=== PATIENT | male | born 1970 | race African-American/Black ===

== ENCOUNTER 2019-12-02 20:20 | Inpatient (IN) ==
[2019-12-02] MEDS ORDERED: MAGNESIUM HYDROXIDE SUSP 30 ML UDC PO PRN (23:41)
[2019-12-02] MEDS ORDERED: ACETAMINOPHEN 325 MG TAB PO PRN (23:41)
[2019-12-02] MEDS ORDERED: ALUMINUM/MAGNESIUM SUSP 30 ML UDC PO PRN (23:41)
[2019-12-02] MEDS ORDERED: POLYETHYLENE (MIRALAX) 17 GM PACK PO PRN (23:41)
[2019-12-02] MEDS ORDERED: ONDANSETRON INJ 2 MG/ML 2 ML VIAL IV PRN (23:41)
[2019-12-02] MEDS ORDERED: VANCOMYCIN CONSULT ACTIVE PRN ×2 (23:52)
[2019-12-03] MEDS ORDERED: SODIUM CHLORIDE 0.9% 1000ML 500 ML IV ONE
[2019-12-03 00:12] LABS: Basophils # (auto) 0.02 K/uL (0-0.2); Basophils % (auto) 0.1 %; Eosinophils # (auto) 0.33 K/uL (0-0.5); Eosinophils % (auto) 1.7 %; Hematocrit (blood only) 34.7 % (42-52); Hemoglobin 11.4 g/dL (14.0-18.0); Immature Granulocytes # (auto) 0.08 K/uL (0.00-0.02); Immature Granulocytes % (auto) 0.4 %; Lymphocytes # (auto) 1.98 K/uL (1.2-3.4); Lymphocytes % (auto) 10.2 %; Mean Corpuscular Hemoglobin 23.5 pg (25-34); Mean Corpuscular Volume 71.4 fL (80-100); Mean Platelet Volume 9.1 fL (7.4-10.4); Monocytes % (auto) 6.2 %; Neutrophils # (auto) 15.79 K/uL (1.4-6.5); Neutrophils % (auto) 81.4 %; Platelet Count 416 K/uL (130-400); RDW Coefficient of Variation 17.6 % (11.5-14.5); RDW Standard Deviation 45.8 fL (36.4-46.3); Red Blood Count 4.86 M/uL (4.7-6.1)
[2019-12-03 00:15] LABS: Mean Corpuscular Hgb Conc 32.9 g/dL (32-36)
[2019-12-03 00:21] LABS: INR 1.2 (0.9-1.1); Prothrombin Time 12.5 Seconds (9.0-12.0)
[2019-12-03 00:24] LABS: Magnesium 1.9 mg/dl (1.8-2.4)
--- NOTE | 2019-12-03 00:52 | History & Physical Report ---
Date of Service December 03, 2019 Assessment & Plan (1) Sepsis: Mr. Mario Sanchez is a 49 y/o male with past medical hx of paraplegia C5-C7 complete from fall injury, diverting colostomy, infra penile shaft percutaneous saenz tube, spasticity, depression dysautonomia, numerous decubitus ulcers who presents to [facility] via transfer from [facility]. - He was transferred here for sepsis requiring additional workup with need for possible specialist evaluation/intervention. Concern for colovesical fistula. - At outside facility, he had a BP of 81/57, HR 90. His labs were notable for WBC 19.6, iron deficiency anemia with a Hgb of 11.5, Na 134, Albumin 2.3, UA with 2+ blood, protein 2+, Leukocyte esterase 2+, Nitrites negative, bacteria many, mucus few. Blood and urine cultures appear to have been taken. He received Rocephin 1gm IV at 2pm on 12/01 and also Vancomycin 1gm at same time. In addition, he received NSS 1L Bolus. He had a CT Abd/pelvis w/IV contrast - which showed. - very full bladder with right hydroureteronephrosis which may be a reflection of the full bladder as this was not present on the previous exam and there is no obivious etiology in the right ureter. - variable appearance of bowel loops throughout the abdomen with dilated air- filled transverse colon. Fluid filled and decompressed small bowel loops. None of these appear to communicate with the bladder. The ostomy has been moved from the left mid abdomen to the right lower abdomen when compared to the previous exam. There does not appear to be any obstruction related to the ostomy, however, all of the oral contrast remains in the proximal small bowel. - desiccated appearing stool in the rectosigmoid stump, not significantly changed with compared to the previous exam. - There is air in the bladder, this may be iatrogenic as a result of the saenz cath, fistulous communication with the bowel is not excluded, however, not confirmed at this exam. - Gallstones without cholecystitis. - Appears dry here, will give 500cc of fluids, careful because of hydronephrosis reported on outside scan. - Outside Images sent to our Radiology department. - Note that oral contrast remained in small bowel on imaging. - Will repeat labs, get blood and urine cultures as will be challenging to try to follow outside facility results, but appreciate if able as now has received abx. - MRSA swab - Continue with Rocephin 1gm IV q24, and Vancomycin 1gm q12 IV. - Urology consulted to help with saenz complaints for evaluation. - Patient notes no food intake today and will get him a meal tray now then make NPO at 2am. - Monitor on tele - Continue with home medications. - Unsure if Oxybutynin could be source of problem, but reports that incontinence around saenz sight has improved with this medication. Unsure if this is inhibiting the bladder to empty with saenz, do not think so, but including in note as this was considered by author. - No appearance of stool in saenz or bag here. - Has significant chronic pressure ulcers with wound consult appreciated. - Discharge planning consult placed DVT ppx: none, baseline physical activity is not limited by hospitalization, defer chemical incase needing procedure, SCDs limited benefit in paraplegic. FENGI: Regular diet, NPO at midnight, NSS 500 bolus, then will monitor vitals, reports good oral intake of fluids today, Pantoprazole 40mg PO ordered (takes daily). Dispo: Med surg tele, transfer from [facility]. Code: Full Code. (2) Paraplegia: - He sustained injury from fall from top [employer] while in care home, day prior before getting out on parole about 7 years ago. His dad takes care of him at home and he has home health nurses as well. - No feeling from waist down (3) Hydronephrosis: as noted in imaging; transfer accepting physician relayed that there was a pyelonephritis infection. (4) Saenz catheter problem: Saenz order to replace current one, appears to be malfunctioning and not draining properly Follow [facility] Urology consult for evaluation (5) Iron deficiency anemia: consistent with labs from outside facility repeating labs on admission now (6) Leukocytosis: 19.6 at outside hospital, neutrophil dominant. Possible sepsis/infection as cause. No prior labs to compare to see where his baseline is usually. (7) Depression: c/w Citalopram 20mg qAM (8) Autonomic disorder: He notes only taking Midodrine once, qAM, but report from outside hospital shows this is BID. Might require further clarification. Could possible be cause of hypotension at outside facility and tachycardia on arrival. (9) Hypotension: Treated with 1L NSS Bolus at [facility]. On floor 101/74, but now tachycardic of 152, again might be autonomic disorder, will treat with NSS 500cc Bolus, appears dry. (10) Pressure ulcer: - the most significant sacral pressure ulcer this author; do not appreciate any acute infection but concern with open wound being close to rectum which still has some fecal output from sloughing of skin distal to ostomy. - Wound consult placed - Gets home health wound care daily. - Skilled Labor consult to assess nutrition as needed in setting of helping pressure ulcers heal appropriately. Admission and Anticipated Discharge Date Admission Date: December 02, 2019 History of Present Illness Chief Complaint: Sepsis Primary Care Provider: Ariel Braga Mr. Mario Sanchez is a 49 y/o male with past medical hx of paraplegia C5-C7 complete from fall injury, diverting colostomy, infra penile shaft percutaneous saenz tube, spasticity, dysautonomia, numerous decubitus ulcers who presents to [facility] via transfer from [facility]. Critical access hospital was original option was facility was full. He notes going to [facility] as home nurse visited and noticed solid/protein material in saenz tube with concern that this could be stool. Patient notes no new symptoms. He states he feels flush if his bladder becomes full. He has not had fever or chills, shortness of breath, or pain. He notes he has chronic ulcers with home wound care visiting daily. He states that he recently got a new [facility] hospital bed this past week to help offset load on pressure ulcers. Pressure ulcers are located to Left shoulder, sacrum, left elbow, left heel. He notes he has been having issues with saenz starting last night as didn't appear to be draining properly and was kinked. Mr. Sanchez states his father was able to "untwist" saenz tubing. He states he takes Oxybutinin for overflow incontinence as he doesn't feel urge until his bladder is 1500cc distended sometimes and medication is used to treat that. He notes he follows with Urologist and has been having some problems with saenz draining properly, but was limited to seek evaluation because of COVID causing limited ability to be s een in person. At outside facility, he had a BP of 81/57, HR 90. Hisb labs were notable for WBC 19.6, iron deficiency anemia with a Hgb of 11.5, Na 134, Albumin 2.3, UA with 2+ blood, protein 2+, Leukocyte esterase 2+, Nitrites negative, bacteria many, mucus few. Blood and urine cultures appear to have been taken. He received Rocephin 1gm IV at 2pm on 12/01 and also Vancomycin 1gm at same time. In addition, he received NSS 1L Bolus. He had a CT Abd/pelvis w/IV contrast - which showed. - very full bladder with right hydroureteronephrosis which may be a reflection of the full bladder as this was not present on the previous exam and there is no obivious etiology in the right ureter. - variable appearance of bowel loops throughout the abdomen with dilated air- filled transverse colon. Fluid filled and decompressed small bowel loops. None of these appear to communicate with the bladder. The ostomy has been moved from the left mid abdomen to the right lower abdomen when compared to the previous exam. There does not appear to be any obstruction related to the ostomy, however, all of the oral contrast remains in the proximal small bowel. - desiccated appearing stool in the rectosigmoid stump, not significantly changed with compared to the previous exam. - There is air in the bladder, this may be iatrogenic as a result of the saenz cath, fistulous communication with the bowel is not excluded, however, not confirmed at this exam. - Gallstones without cholecystitis. He here notes no acute complaints, he is requesting food as he hasn't eaten all day. Medications were reviewed. He notes only taking Midodrine once, qAM, but report from outside hospital shows this is BID. He denies any blood from ostomy but notes that stools have been more liquid consistency. He notes he has been drinking plenty of clear fluids. No known drug allergies. He sustained injury from fall from top [employer] while in care home, day prior before getting out on parole about 7 years ago. His dad takes care of him at home and he has home health nurses as well. He was transferred here for sepsis requiring additional workup with need for possible specialist evaluation/intervention. Allergies Allergy/AdvReac Type Severity Reaction Status Date / Time No Known Allergies Allergy Unverified 12/03/19 01:20 Past Med/Surg History Social History Smoking Status: Former smoker Hx Alcohol Use: No Hx Substance Use: No Preferred Language: Wolof Communication Ability: Effective Communication Ability Comment: paralyzed Sec Accountant Required: No Beliefs That Will Affect Care: None Current Living Situation: Parent Other Information That Helps Us Care for You: No Feels Safe at Home: Yes Safety Concerns: Feels Safe At This Time Review of Systems Review of Systems: All systems reviewed & are unremarkable except as noted in HPI & below Constitutional: no fever, no chills and no weakness Eyes: no diplopia and no problem reported Ear, Nose, Mouth, Throat: no nasal congestion, no epistaxis and no sore throat Respiratory: no cough and no dyspnea Cardiovascular: no chest pain and no syncope Gastrointestinal: as per Subjective / HPI; no abdominal pain, no nausea and no vomiting Genitourinary: + as per Subjective / HPI Musculoskeletal: + limited range of motion (chronic from paraplegia) no new deformities Integumentary: as per Subjective / HPI Neurologic: as per Subjective / HPI Physical Exam 2 Constitutional: cooperative and comfortable; no acute distress Eyes: PERRL, conjunctivae normal, anicteric sclerae ENMT: significantly dry mucous membranes Neck: normal visual inspection and trachea midline Respiratory: normal respiratory effort, lungs clear to auscultation Cardiovascular: Rate/Rhythm: regular rate and + tachycardic Gastrointestinal (Abdomen): ostomy to right abdomen with brown output; old surgical scars on abdomen; diminished bowel souds, non-tender, soft Musculoskeletal: Head/Neck/Chest: normocephalic and head atraumatic limited range of motion to upper extremities with majority of movement at shoulders, able to move arms, paraplegic from waist down. Skin: multiple pressure ulcers that are chronic; able to view very very significantly large sacral pressure ulcer stage 4 appearance that makes up the majority of the left gluteus. Output of small light brown stool from rectum while being rolled to look at ulcer. Neurologic: awake at neuro baseline per patient Psychiatric: A+Ox3, euthymic affect Genitourinary: Has an infra penile saenz cath placed Results & Data Results & Data ([facility]) Vital Signs (Past 12 Hours) Vital Signs Temp Pulse Resp BP Pulse Ox 12/02/19 23:06 37.1 C 152 H 16 101/74 98 Laboratory Results at [facility] His labs were notable for WBC 19.6, iron deficiency anemia with a Hgb of 11.5, Na 134, Albumin 2.3, UA with 2+ blood, protein 2+, Leukocyte esterase 2+, Nitrites negative, bacteria many, mucus few. Blood and urine cultures appear to have been taken. Medications Administered At outside facility, He had a CT Abd/pelvis w/IV contrast - which showed. - very full bladder with right hydroureteronephrosis which may be a reflection of the full bladder as this was not present on the previous exam and there is no obivious etiology in the right ureter. - variable appearance of bowel loops throughout the abdomen with dilated air- filled transverse colon. Fluid filled and decompressed small bowel loops. None of these appear to communicate with the bladder. The ostomy has been moved from the left mid abdomen to the right lower abdomen when compared to the previous exam. There does not appear to be any obstruction related to the ostomy, howev er, all of the oral contrast remains in the proximal small bowel. - desiccated appearing stool in the rectosigmoid stump, not significantly changed with compared to the previous exam. - There is air in the bladder, this may be iatrogenic as a result of the saenz cath, fistulous communication with the bowel is not excluded, however, not confirmed at this exam. - Gallstones without cholecystitis. Code Status & VTE Plan Code Status Full VTE Prophylaxis Plan VTE Prophylaxis will be ordered: No Reason for no VTE drug order: Treatment not indicated Reason for no VTE mechanical prophylaxis: Treatment not indicated Supervising Physician Co-Signing Physician Notes Attending addendum: I have physically seen this patient, have supervised the medical residents activities, and agree with the H&P unless as otherwise noted. Assessment and Plan: Sepsis due to UTI/hydronephrosis/pyelonephritis- Accepted in transfer from [facility]- Hypotension at transferring facility improved with 1 L normal saline IV fluid rehydration, and was given vancomycin IV and ceftriaxone IV before being transferred. Bladder outlet obstruction with bladder retention. Continue on vancomycin IV and ceftriaxone IV. Follow urine culture and sensitivity from referring hospital Consult urology Paraplegia- Continue supportive treatment Remainder of orders and notations as noted Resident Activity Tracking Resident Involvement: Resident Care Provided Care Provided: Adult Hospital Medicine
[2019-12-03] MEDS: GABAPENTIN 600 MG TAB PO SCH ×5 (01:06→20:46)
[2019-12-03] MEDS: levETIRAcetam 500 MG TAB PO SCH ×3 (01:07→20:46)
[2019-12-03] MEDS: PATIENT'S ALLERGY INFO NEEDS ENTERED SCH ×2 (01:19→01:48)
[2019-12-03 01:56] LABS: Creatinine Clr Calc Pharmacy 81.5 ml/min; Est GFR (African American) 77.9; Est GFR (Non-African American) 67.2
[2019-12-03] MEDS ORDERED: VANCOMYCIN HCL 1,000 MG in SODIUM CHLORIDE 0.9% 250 ML IV SCH (02:00)
[2019-12-03] MEDS ORDERED: VANCOMYCIN HCL 1,750 MG in SODIUM CHLORIDE 0.9% 500 ML IV SCH (02:00)
[2019-12-03 06:22] LABS: BUN Creatinine Ratio 14.7 (10-20); Calcium 8.2 mg/dl (8.5-10.1); Creatinine Clr Calc Pharmacy 88.9 ml/min; Est GFR (Non-African American) 75.1
[2019-12-03 06:25] LABS: Albumin Globulin Ratio 0.4 (0.9-2); Bilirubin,Total 0.5 mg/dl (0.2-1); Globulin 4.7 gm/dl (2.5-4.0); Total Protein 6.7 gm/dl (6.4-8.2)
[2019-12-03] MEDS ORDERED: SODIUM CHLORIDE 0.9% 1000ML 1,000 ML IV SCH (07:00)
[2019-12-03] MEDS: OXYBUTYNIN CHLORIDE XL 5 MG TABCR PO SCH ×2 (08:36→20:45)
[2019-12-03] MEDS: MIDODRINE HCL 2.5 MG TAB PO SCH (08:36)
[2019-12-03] MEDS: PANTOprazole 40 MG TAB PO SCH (08:36)
[2019-12-03] MEDS: CITALOPRAM 20 MG TAB PO SCH (08:36)
[2019-12-03] MEDS: MAGNESIUM OXIDE 400 MG TAB PO SCH (08:36)
[2019-12-03] MEDS: SENNA 8.6 MG TAB PO SCH ×2 (08:36→20:47)
[2019-12-03] MEDS: FERROUS SULFATE 325 MG TAB PO SCH (08:36)
[2019-12-03] MEDS: FOLIC ACID 1 MG TAB PO SCH (08:36)
--- NOTE | 2019-12-03 09:42 | Pharmacy Report ---
Pharmacy Abx Initial Consult - Date of Service December 03, 2019 - Pharmacy Dosing Scope Date of Consult: 12/02 Consultation requested by: Dr. Morales Pharmacy is consulted to initiate vancomycin dosing therapy, order appropriate labs and adjust drug dose/frequency. - Subjective The patient is a 49 year old M admitted on 12/02/19 22:56. - Objective Height: 6 ft 4 in Weight: 80.2 kg Vital Signs (Past 12hrs): Vital Signs Temp Pulse Resp BP Pulse Ox 12/03/19 08:52 36.4 C L 18 L 20 90/67 L 97 12/03/19 05:01 37.0 C 106 H 16 90/58 L 98 12/03/19 01:47 106 H 84/57 L 12/02/19 23:06 37.1 C 152 H 16 101/74 98 Lab Results (24hrs): Laboratory Tests (24 Hours) 12/03/19 12/02/19 12/02/19 05:18 23:57 23:57 WBC 19.40 H Neut # (Auto) 15.79 H Creatinine 1.14 1.25 Est Cr Clr Drug Dosing 88.9 81.5 Micro Results: 12/03/19 00:59 Aerobic Blood Culture - Pending Blood Anaerobic Blood Culture - Pending 12/03/19 00:45 Aerobic Blood Culture - Pending Blood Anaerobic Blood Culture - Pending 12/03/19 00:10 Urine Culture - Pending Urine,Indwelling Cath - Assessment & Plan Assessment 49 year old male with past medical hx of paraplegia, diverting colostomy, spasticity, numerous decubitus ulcers who was transfer from OSH due to concern for sepsis. Received 1 gm of vancomycin and 1 gm of rocephin at OSH. Blood cultures and urine culture pending. Both antibiotics continued empirically x 48 hrs Plan Vancomycin IV * Patient had received 1 gm prior to arrival of vancomycin (~12 mg/kg/dose) * Reloaded with vancomycin 1750 mg (~22 mg/kg) this AM, as anticipated level from previous dosing <10 mcg/ml * Will start maintenance dose slightly later today when estimated level <20 mcg/ml * Due to paraplegia will adjust CrCl with correction of 0.8 (CrCl ~70) - based off of estimated kinetics will dose with vancomycin 1250 mg iv q 12 hrs to achieve estimated trough ~15-20 mcg/ml * Dosing also follows AUC recommended dosing for weight/CrCl * Antibiotics ordered x 48 hrs, will follow and order trough as appropriate Pharmacy will continue to follow and will adjust dose/frequency as necessary. Thank you.
--- NOTE | 2019-12-03 10:14 | Hospitalist Progress Note ---
Date of Service December 03, 2019 Assessment & Plan (1) Sepsis: Mr. Mario Sanchez is a 49 y/o male with past medical hx of paraplegia C5-C7 complete from fall injury, diverting colostomy, infra penile shaft percutaneous saenz tube, spasticity, depression, dysautonomia, numerous decubitus ulcers who presents to [facility] via transfer from [facility] for sespis with concerns for colovesicular fistula. No appearance of stool in saenz or saenz bag here. 1. Sepsis: most recent vitals BP 90/67, pulse 18, resp 20, t36.4, O2 97% on RA. -source initially thought to be urine - after d/w wound nurse concern on decubiti being source of sepsis as well -c/w ceftriaxone -was planning on dc vanco since urine growing gram neg rods, but after d/w wound nurse, decubiti easily could be source of sepsis as well -clinically monitor overnight 2. Urinary retention with right hydronephrosis secondary to the retention -resolved per urology consult -nephrostomy tube draining clear urine 3. Paraplegia, spasticity, dysautonomia -c/w gabapentin 600mg PO qid -c/w keppra 500mg PO bid -c/w oxybutynin 15mg PO bid 4. Decubitus ulcers: present on admission -wound care consult placed, await recomendations 5. Depression: stable -citalopram 20mg qAM DVT ppx: none - baseline physical activity is not limited by hospitalization, defer chemoprophylaxis in case procedure needed, SCDs limited benefit in paraplegic. FENGI: Regular diet, NPO at midnight, NSS 500 bolus, then will monitor vitals Dispo: med surg telemetry Code: full code Admission and Anticipated Discharge Date Admission Date: December 02, 2019 Supervising Physician Co-Signing Physician Notes I personally examined the patient and verified all arechiga points of history and exam, discussed case, and agree with decision making with Dr Rachel feeling fine. later wound nurse called - we were unable to well-visualize decubiti due to positioning/paraplegia - wound nurse then described many purulent and very deep wounds. pictures to be uploaded. vitals noted nad heent nc at mmm breathing unlabored no accessory muscles abd soft nd nt no masses or organomegaly. visualized skin without erythema but limited as above - see wound assessment and pictures for better description sepsis -initially thought be urinary source, but easily could be decubiti as well, or both -ceftraixone and vanco for now -supportive care -fortunately is improving chronic neurogenic bladder with chronic catheter complicated by catheter dysfunction and probable UTI (as one of his possible sources for sepsis) - ceftriaxone as above, saenz now draining, await final results from urine cultures (done at [facility]) decubiti - unfortunately sacral decub as being described as likely down to the bone, many purulent. local wound care, wound and surgical evals. continue ceftriaxone and vanco for this (cultures sent, although was already on abx so may not show much), offload, supportive care chronic paraplegia - supportive care microcytic anemia - noted, consider iron studies if not done recently low albumin - suspect chronic protein malnutrition. supportive care, business services clerk consult. otherwise as above Subjective Patient seen at bedside this morning. He feels well and is already eager for discharge. Patient denies any urinary symptoms and feels at his baseline overall. I phoned [facility] to check for results of his urine and blood cultures there: the urine culture (preliminary results) grew >1000 colonies of gram negative bacilli; both blood cultures showed no growth after the first 24 hours. Review of Systems Constitutional: no fever, no chills, no sweats and no fatigue Respiratory: no cough, no dyspnea, no pain on inspiration and no wheezing Cardiovascular: no chest pain, no dyspnea, no palpitations and no edema Gastrointestinal: no abdominal pain, no nausea, no vomiting and no cramping Physical Exam Constitutional: no acute distress and not ill appearing Respiratory: normal respiratory effort; no respiratory distress and no labored breathing Genitourinary: Patient's ostomy bag was normal-appearing without blood or purulent discharge. Patient's nephrostomy tube was clear and filled with urine- appearing fluid without purlent discharge, marjan blood, clots, or any feculent- appearing material. Results & Data Results & Data ([facility]) Vital Signs (Past 12 Hours) Vital Signs Temp Pulse Pulse Resp BP Pulse Ox 12/03/19 08:52 36.4 C L 18 L 20 90/67 L 97 12/03/19 08:00 91 H 12/03/19 05:01 37.0 C 106 H 16 90/58 L 98 07/23/20 01:47 106 H 84/57 L 12/02/19 23:06 37.1 C 152 H 16 101/74 98
[2019-12-03 10:31] LABS: Appearance Urine Turbid (Clear); Bacteria Urine Automated 4+ (Negative); Bilirubin Urine Negative (Negative); Blood Urine 1+ (Negative); Color Urine Orange; Epithelial Cell Urine Auto >30 /lpf (0-5); Glucose Urine UA Negative (Negative); Ketones Urine Negative (Negative); Leukocyte Esterase Urine 3+ (Negative); Nitrite Urine Negative (Negative); Specific Gravity Urine 1.021 (1.000-1.030); Urobilinogen Urine Negative (Negative); pH Urine >= 9.0 (4.5-7.5)
--- NOTE | 2019-12-03 10:41 | Urology Consultation ---
Date of Consultation December 03, 2019 Assessment & Plan (1) Forbes catheter problem: Assessment Urinary retention with right hydronephrosis secondary to the retention Patient says that the Forbes catheter has been draining fine since it was changed yesterday He does have a urologist that follows him and is planning on placing a suprapubic tube Since he is no longer having Forbes issues will defer any further evaluation and treatment to his primary urologist History of Present Illness Attending Physician: Piter Wilson DO History of Present Illness Patient is a 49-year-old black male with a past medical history significant for paraplegia secondary to a cervical spinal cord injury which occurred during a fall. He has a colostomy he also has a Forbes catheter and various decubitus ulcers who is admitted to the hospital with possible urosepsis. He says he was having some issues with his Forbes catheter draining yesterday. He attempted to unkinked the catheter but it did not drain properly still. He had a CT scan done when while in the emergency room which showed a very full bladder with some right hydronephrosis. He has had his Forbes catheter changed and said it has been draining fine now. Urine is clear in the bag Allergies Allergy/AdvReac Type Severity Reaction Status Date / Time No Known Allergies Allergy Unverified 12/03/19 01:20 Patient History Social History Smoking Status: Former smoker Hx Alcohol Use: No Hx Substance Use: No Preferred Language: Fijian Communication Ability: Effective Communication Ability Comment: paralyzed Replenishment Specialist Required: No Beliefs That Will Affect Care: None Current Living Situation: Parent Other Information That Helps Us Care for You: No Feels Safe at Home: Yes Safety Concerns: Feels Safe At This Time Review of Systems Review of Systems: Reviewed from his admitting history and physical Physical Exam Physical Exam: Constitutional Well-developed well-nourished In no acute distress, Healthy appearing Neuro/psych Alert and oriented x3 Normal mood Normal affect Paraplegic Skin Normal color Normal turgor Positive for decubiti Warm and Dry Neck Normal visual inspection Pulmonary Normal rhythm and effort No respiratory distress No audible wheezes Able to speak in complete sentences Cardiac No peripheral edema He does have a Forbes catheter placed His urethra is split to the base of the scrotum secondary to pressure necrosis from the Forbes Results & Data Vital Signs (Past 12 Hours) Vital Signs Temp Pulse Pulse Resp BP Pulse Ox 12/03/19 08:52 36.4 C L 18 L 20 90/67 L 97 12/03/19 08:00 91 H 12/03/19 05:01 37.0 C 106 H 16 90/58 L 98 12/03/19 01:47 106 H 84/57 L 12/02/19 23:06 37.1 C 152 H 16 101/74 98 Laboratory Results Laboratory Results - last 24 hr 12/02/19 12/02/19 12/02/19 23:57 23:57 23:57 WBC 19.40 H RBC 4.86 Hgb 11.4 L Hct 34.7 L MCV 71.4 L MCH 23.5 L MCHC 32.9 RDW Std Deviation 45.8 RDW Coeff of Huey 17.6 H Plt Count 416 H MPV 9.1 Immature Gran % (Auto) 0.4 Neut % (Auto) 81.4 Lymph % (Auto) 10.2 Turner % (Auto) 6.2 Eos % (Auto) 1.7 Baso % (Auto) 0.1 Neut # (Auto) 15.79 H Lymph # (Auto) 1.98 Turner # (Auto) 1.20 H Eos # (Auto) 0.33 Baso # (Auto) 0.02 Immature Gran # (Auto) 0.08 H PT 12.5 H INR 1.2 H Sodium Potassium Chloride Carbon Dioxide Anion Gap BUN Creatinine 1.25 Est Cr Clr Drug Dosing 81.5 Est GFR ( Amer) 77.9 Est GFR (Non-Af Amer) 67.2 BUN/Creatinine Ratio Glucose Calcium Magnesium 1.9 Total Bilirubin AST ALT Alkaline Phosphatase Total Protein Albumin Globulin Albumin/Globulin Ratio Urine Color Urine Appearance Urine pH Ur Specific Jermyn Urine Protein Urine Glucose (UA) Urine Ketones Urine Blood Urine Nitrite Urine Bilirubin Urine Urobilinogen Ur Leukocyte Esterase Nasal Screen MRSA (PCR) 12/03/19 12/03/19 12/03/19 00:10 00:10 05:18 WBC RBC Hgb Hct MCV MCH MCHC RDW Std Deviation RDW Coeff of Huey Plt Count MPV Immature Gran % (Auto) Neut % (Auto) Lymph % (Auto) Turner % (Auto) Eos % (Auto) Baso % (Auto) Neut # (Auto) Lymph # (Auto) Turner # (Auto) Eos # (Auto) Baso # (Auto) Immature Gran # (Auto) PT INR Sodium 134 L Potassium 4.0 Chloride 105 Carbon Dioxide 19 L Anion Gap 10.0 BUN 17 Creatinine 1.14 Est Cr Clr Drug Dosing 88.9 Est GFR ( Amer) 87.0 Est GFR (Non-Af Amer) 75.1 BUN/Creatinine Ratio 14.7 Glucose 77 Calcium 8.2 L Magnesium Total Bilirubin 0.5 AST 10 L ALT 12 Alkaline Phosphatase 102 Total Protein 6.7 Albumin 2.0 L Globulin 4.7 H Albumin/Globulin Ratio 0.4 L Urine Color Pending Urine Appearance Pending Urine pH Pending Ur Specific Jermyn Pending Urine Protein Pending Urine Glucose (UA) Pending Urine Ketones Pending Urine Blood Pending Urine Nitrite Pending Urine Bilirubin Pending Urine Urobilinogen Pending Ur Leukocyte Esterase Pending Nasal Screen MRSA (PCR) Negative PG Care Time/CCT Total # of Minutes Spent Total Time Spent with Patient: Total time spent is greater than 50% in coordination of care (as documented) at patient's floor/unit and/or counseling patient: Coding Level of Care Code 73292 Inpt Consult Level 3 Diagnoses Forbes catheter problem T83.9XXA
[2019-12-03 10:42] LABS: Protein Urine 3+ (Negative)
[2019-12-03 10:51] LABS: Triple Phosphate Crystal Urine Present (None Prsent)
[2019-12-03 10:52] LABS: RBC Urine Automated >30 /hpf (0-4)
[2019-12-03] MEDS: cefTRIAXone SODIUM 2,000 MG in DEXTROSE 5% 50 ML IV SCH (12:29)
[2019-12-03] MEDS ORDERED: VANCOMYCIN HCL 1,250 MG in SODIUM CHLORIDE 0.9% 250 ML IV SCH ×2 (14:00→16:00)
[2019-12-03] MEDS ORDERED: VANCOMYCIN CONSULT ACTIVE PRN (17:13)
[2019-12-03] MEDS: VANCOMYCIN HCL 1,250 MG in SODIUM CHLORIDE 0.9% 250 ML IV SCH (17:56)
--- NOTE | 2019-12-03 19:23 | Billing Data ---
Date of Service December 03, 2019 Coding Level of Care Code 44224 Subseq Hosp Care Lvl 3
--- NOTE | 2019-12-03 20:07 | Billing Data ---
Date of Service December 03, 2019 Coding Level of Care Code 39561 Initial Inpt Care Lvl 3
[2019-12-04] MEDS: VANCOMYCIN HCL 1,250 MG in SODIUM CHLORIDE 0.9% 250 ML IV SCH ×2 (05:44→17:47)
[2019-12-04 07:03] LABS: Basophils # (auto) 0.02 K/uL (0-0.2); Basophils % (auto) 0.2 %; Eosinophils # (auto) 0.61 K/uL (0-0.5); Eosinophils % (auto) 4.8 %; Hematocrit (blood only) 31.7 % (42-52); Hemoglobin 9.8 g/dL (14.0-18.0); Immature Granulocytes # (auto) 0.03 K/uL (0.00-0.02); Immature Granulocytes % (auto) 0.2 %; Lymphocytes # (auto) 2.43 K/uL (1.2-3.4); Lymphocytes % (auto) 19.3 %; Mean Corpuscular Hemoglobin 22.4 pg (25-34); Mean Corpuscular Hgb Conc 30.9 g/dL (32-36); Mean Corpuscular Volume 72.4 fL (80-100); Mean Platelet Volume 9.3 fL (7.4-10.4); Monocytes # (auto) 0.87 K/uL (0.11-0.59); Monocytes % (auto) 6.9 %; Neutrophils # (auto) 8.63 K/uL (1.4-6.5); Neutrophils % (auto) 68.6 %; Platelet Count 392 K/uL (130-400); RDW Coefficient of Variation 17.5 % (11.5-14.5); RDW Standard Deviation 46.8 fL (36.4-46.3); Red Blood Count 4.38 M/uL (4.7-6.1); White Blood Count 12.59 K/uL (4.8-10.8)
[2019-12-04 07:28] LABS: Target Cells 1+
[2019-12-04 07:42] LABS: Calcium 8.5 mg/dl (8.5-10.1); Creatinine Clr Calc Pharmacy 133.7 ml/min; Est GFR (African American) 122.8; Potassium 3.9 mmol/L (3.5-5.1)
[2019-12-04] MEDS: PANTOprazole 40 MG TAB PO SCH (09:50)
[2019-12-04] MEDS: FOLIC ACID 1 MG TAB PO SCH (09:50)
[2019-12-04] MEDS: CITALOPRAM 20 MG TAB PO SCH (09:50)
[2019-12-04] MEDS: OXYBUTYNIN CHLORIDE XL 5 MG TABCR PO SCH ×2 (09:50→20:41)
[2019-12-04] MEDS: GABAPENTIN 600 MG TAB PO SCH ×4 (09:50→20:41)
[2019-12-04] MEDS: levETIRAcetam 500 MG TAB PO SCH ×2 (09:50→20:41)
[2019-12-04] MEDS: FERROUS SULFATE 325 MG TAB PO SCH (09:50)
[2019-12-04] MEDS: MIDODRINE HCL 2.5 MG TAB PO SCH (09:50)
[2019-12-04] MEDS: MAGNESIUM OXIDE 400 MG TAB PO SCH (09:50)
[2019-12-04] MEDS: SENNA 8.6 MG TAB PO SCH ×2 (09:50→20:40)
[2019-12-04] MEDS: cefTRIAXone SODIUM 2,000 MG in DEXTROSE 5% 50 ML IV SCH (12:11)
--- NOTE | 2019-12-04 13:12 | Surgery Consultation ---
Date of Consultation December 04, 2019 Assessment & Plan (1) Pressure ulcer: None of the ulcers appear to have necrotic tissue that would require sharp debridement in the operating room. The one decubitus superior on the left side does have some tunneling but this would not be worth a trip to the operating room. If there is any concern clinically for osteomyelitis an MRI could be performed. Patient clinically is stable. Continue local wound care per the wound service although consideration could be given for wound vacs on the larger ulcers. Currently I do not see a need for sharp surgical debridement. We will sign off at this time please call if any questions. History of Present Illness Attending Physician: Piter Wilson DO History of Present Illness pt paraplegic for 7 years s/p fall from a bunk. he now has home nursing. has a permanent stoma. Originally there was some concern about him having a colovesical fistula. CT scan has not confirmed this. Urology did exchange his catheter and so far there is been no evidence of any stool in his new urine bag. We were requested to evaluate his multiple decubitus ulcers for potential debridement. He does state that he was having some problems with his sacral decubitus ulcers because his air mattress was not functioning properly. He now does have a new mattress at home. He denies pain in any of the ulcers. Allergies Allergy/AdvReac Type Severity Reaction Status Date / Time No Known Allergies Allergy Unverified 12/03/19 01:20 Patient History Social History Smoking Status: Former smoker Hx Alcohol Use: No Hx Substance Use: No Preferred Language: Bulgarian Communication Ability: Effective Communication Ability Comment: paralyzed Analysis Mgr Required: No Beliefs That Will Affect Care: None Current Living Situation: Parent Other Information That Helps Us Care for You: No Feels Safe at Home: Yes Safety Concerns: Feels Safe At This Time Review of Systems Review of Systems: All systems reviewed & are unremarkable except as noted in HPI & below Physical Exam Physical Exam: Alert and oriented. Appears comfortable. No acute distress. Heent: pearla. eomi. no jvd Heart: RRR Lungs: CTA b/l abd: soft. stoma in place. functioning. ext: unable to move LE's. Multiple large at least stage III possibly stage IV pressure ulcers of his sacrum buttock left shoulder and right hip. All of them have the same appearance. They have nice pink granulation tissue in the wound bed. The superior most wound on his left side has a small amount of tunneling. None of them have any black necrotic debris or tissue that would require sharp debridement. There is a small amount of drainage on the sacral wounds but none of this currently appears to be exudate. There is no foul odor. They are nontender. Results & Data Vital Signs (Past 12 Hours) Vital Signs Temp Pulse Resp BP Pulse Ox 12/04/19 11:32 36.7 C 74 18 109/61 99 12/04/19 07:37 36.8 C 84 18 102/68 98 12/04/19 03:49 36.9 C 82 16 95/67 L 98 PG Care Time/CCT Total # of Minutes Spent Total Time Spent with Patient: Total time spent is greater than 50% in coordination of care (as documented) at patient's floor/unit and/or counseling patient: Coding Level of Care Code 25545 Inpt Consult Level 4 Diagnoses Pressure ulcer L89.90
--- NOTE | 2019-12-04 13:22 | Hospitalist Progress Note ---
Date of Service December 04, 2019 Assessment & Plan (1) Sepsis: Mr. Mario Sanchez is a 49 y/o male with past medical hx of paraplegia C5-C7 complete from fall injury, diverting colostomy, infra penile shaft percutaneous saenz tube, spasticity, depression, dysautonomia, numerous decubitus ulcers who presents to [facility] via transfer from [facility] for sespis with concerns for colovesicular fistula. No appearance of stool in saenz or saenz bag here. 1. Sepsis: most recent vitals BP 90/67, pulse 18, resp 20, t36.4, O2 97% on RA. -c/w ceftriaxone -d/c vancomycin as urine culture from [facility] (preliminary result) grew gram negative bacilli only 2. Pressure ulcers, osteomyelitis: see HPI for update on recent wound care history -CT pelvis with attention to sacrum -wound care involved -surgery consult today 3. Urinary retention with right hydronephrosis secondary to the retention -resolved per urology consult -nephrostomy tube draining clear urine 4. Paraplegia, spasticity, dysautonomia -c/w gabapentin 600mg PO qid -c/w keppra 500mg PO bid -c/w oxybutynin 15mg PO bid 6. Depression: stable -citalopram 20mg qAM DVT ppx: none - baseline physical activity is not limited by hospitalization, defer chemoprophylaxis in case procedure needed, SCDs limited benefit in paraplegic. FENGI: Regular diet, NPO at midnight, NSS 500 bolus, then will monitor vitals Dispo: med surg telemetry Code: full code Admission and Anticipated Discharge Date Admission Date: December 02, 2019 Subjective Patient seen at bedside this morning. He reports feeling well overall. Patient denies any urinary symptoms and feels at his baseline overall, like yesterday. He expresses frustration with his ongoing medical complications and expresses that he wants to leave as soon as possible. I phoned [facility] to see if they had information about patient's extensive pressure ulcers. They noted he was seen on 10/27/2019 and placed on 1 week of augmentin for a would on his right buttock. He was last seen on 11/12/2019 and at that time he did not have documentation of active osteomyelitis, and was not on antibiotics at that time. He has a follow-up appointment with them next week. Results & Data Results & Data ([facility]) Vital Signs (Past 12 Hours) Vital Signs Temp Pulse Resp BP Pulse Ox 12/04/19 11:32 36.7 C 74 18 109/61 99 12/04/19 07:37 36.8 C 84 18 102/68 98 12/04/19 03:49 36.9 C 82 16 95/67 L 98
[2019-12-04] MEDS ORDERED: ACETIC ACID 0.25% IRRIG SOLN 1000 ML PLCT IR SCH (13:30)
--- NOTE | 2019-12-04 15:59 | Wound Consultation ---
Date of Consultation December 04, 2019 Assessment & Plan (1) Pressure ulcer: With numerous pressure ulcers of left shoulder, bilateral ischium, sacrum, left heel and right ankle. No debridement was required. Wounds were dressed with Aquacel Ag and OPTi foam. Patient reports he has known underlying osteomyelitis and is receiving treatment over [facility] wound clinic. He is not interested in getting further work-up and is planning on signing out AMA. We will get records from patient's wound clinic to find out if he truly does have a diagnosis of osteomyelitis and what wound culture they are treating. If no recent imaging would recommend MRI or CT to rule out osteomyelitis his wound probe down to bone. We will continue to follow. Thank you for limited participate in the care of this patient. Please do not hesitate to call with any questions. (2) Paraplegia: History of Present Illness Reason for Consultation: numerous pressure ulcers Attending Physician: Piter Wilson DO History of Present Illness This is a 49-year-old male with a history of paraplegia, pressure ulcers, autonomic disorder, Fobres catheter problem and iron deficiency anemia who was admitted with urosepsis. On exam patient was also noted to have numerous open pressure ulcers. Patient follows with the wound clinic in [place]. Patient states he has underlying osteomyelitis and is been receiving treatment from there. Patient states they are doing Dakin soaks on his wounds. He does not want any work-up but is threatening to sign out AMA. Allergies Allergy/AdvReac Type Severity Reaction Status Date / Time No Known Allergies Allergy Unverified 12/03/19 01:20 Home Medications Home Medications Medication Instructions Recorded Confirmed Type cefdinir 300 mg PO BID 14 Days #28 cap 12/04/19 Rx doxycycline hyclate 100 mg PO BID 28 Days #56 cap 12/04/19 Rx Patient History Social History Smoking Status: Former smoker Hx Alcohol Use: No Hx Substance Use: No Preferred Language: Yakut Communication Ability: Effective Hotel Manager Required: No Beliefs That Will Affect Care: None Current Living Situation: Parent Feels Safe at Home: Yes Review of Systems Review of Systems: All systems reviewed & are unremarkable except as noted in HPI & below Physical Exam Constitutional: + ill appearing Eyes: PERRL, conjunctivae normal, anicteric sclerae Skin: Patient with wounds of left shoulder, bilateral issue wounds, sacrum, left heel, right ankle measuring as recorded in nursing documentation. Wounds are covered with fibrin and slough. There is greenish drainage. There is foul odor. Neurologic: awake; not confused Psychiatric: A+Ox3, euthymic affect Results & Data Vital Signs (Past 12 Hours) Vital Signs Temp Pulse Resp BP Pulse Ox 12/04/19 11:32 36.7 C 74 18 109/61 99 12/04/19 07:37 36.8 C 84 18 102/68 98 PG Care Time/CCT Total # of Minutes Spent Total Time Spent with Patient: Total time spent is greater than 50% in coordination of care (as documented) at patient's floor/unit and/or counseling patient: Coding Level of Care Code 82307 Inpt Consult Level 3 Diagnoses Pressure ulcer L89.90 Paraplegia G82.20
[2019-12-04 16:18] VITALS: O2SAT 98
--- NOTE | 2019-12-04 16:36 | CT Scan Report ---
CT SCAN OF THE PELVIS WITHOUT IV CONTRAST CLINICAL HISTORY: Sacral decubitus ulcer. Clinical concern for osteomyelitis. COMPARISON STUDY: Pelvic CT dated 11/30/2019. TECHNIQUE: CT scan of the pelvis is performed from the pelvic inlet to the proximal femora. Images ar e reviewed in the axial, sagittal, and coronal planes. IV contrast was not administered for this exam ination. A dose lowering technique was utilized adhering to the principles of ALARA. FINDINGS: The skeletal structures are osteopenic. No acute fracture is identified. There is posttraumatic defor mity of the left proximal femur with intertrochanteric and intramedullary nails in place. There is in complete bony fusion of the femoral fragments of the proximal shaft around the intramedullary nail. N o lytic or blastic lesion is seen. A 3.8 cm fat attenuation lesion in the right acetabular roof may r epresent a hemangioma. The joint spaces of the hips are maintained. The sacroiliac joints are normal. No significant joint effusion is identified. There is a large sacral decubitus ulcer. There are also large wounds/ulcerations overlying both ischi al tuberosities. There is phlegmonous change within the subcutaneous soft tissues at these sites with no organized fluid collection seen to suggest abscess. The ulceration on the left extends into the p osterior left thigh to the left femoral shaft. There is a fluid-filled sinus tract extending to the l eft greater trochanter seen on image #224 There is significant bony sclerosis involving both ischial tuberosities, as well as the posterior aspect of the greater trochanter of the left femur. This is hi ghly concerning for osteomyelitis. This may be chronic. There is mild fragmentation of both ischial t uberosities and the posterior greater trochanter of the left femur. There is sclerotic change and ero mega seen involving the lower sacrum and proximal coccyx deep to the ulceration. The bladder is decompressed around a Forbes catheter. The bladder wall appears thickened and there is pericystic inflammation. The prostate and seminal vesicles are normal as visualized. There is no free fluid in the pelvis. Residual enteric contrast is seen in the right colon. There is rectosigmoid fec al impaction. No pelvic sidewall or inguinal adenopathy is identified. Mild atherosclerotic calcifica tion is noted in the iliac arteries. An ostomy is partially visualized in the right lower quadrant. T here is generalized atrophy of the pelvic musculature. IMPRESSION: 1. There are large wounds/ulcerations identified overlying the sacrum and both ischial tuberosities a s detailed above. The left ischial wound extends into the left posterior thigh, and there is a sinus tract which extends to the left femur. 2. Phlegmonous change is present within the soft tissues. No organized fluid collection is seen to in dicate abscess. 3. There is bony sclerosis and fragmentation involving both ischial tuberosities and the posterior gr eater trochanter of the left femur. This is highly concerning for osteomyelitis which may be chronic. 4. There is also evidence of osteomyelitis involving the lower sacrum and proximal coccyx. 5. Although decompressed around a Forbes catheter, the bladder wall is thickened and there is pericyst ic inflammation. This suggests cystitis and correlation with urinalysis will be required. 6. There is rectosigmoid fecal impaction and a right lower quadrant ostomy. Correlation with the tere ent's surgical history will be required. 7. There is posttraumatic deformity and postoperative change involving the left femur. There is incom plete bony fusion of the fracture fragments of the left femoral shaft. ACT 112: Negative or not required by law. Dictated: 12/04/2019 3:31 PM Transcribed: 12/04/2019 4:23 PM Cristine [id number] [email or web address] Electronically signed by: Ermias Winkler M.D. 12/04/2019 4:35 PM
[2019-12-04] MEDS ORDERED: VANCOMYCIN TROUGH ONE (17:30)
--- NOTE | 2019-12-04 18:02 | Discharge Summary ---
Date of Service December 04, 2019 Admission HPI Per Admitting Provider Mr. Mario Sanchez is a 49 y/o male with past medical hx of paraplegia C5-C7 complete from fall injury, diverting colostomy, infra penile shaft percutaneous saenz tube, spasticity, dysautonomia, numerous decubitus ulcers who presents to [facility] via transfer from [facility] was [facility]. He notes going to [facility] as home nurse visited and noticed solid/protein material in saenz tube with concern that this could be stool. Patient notes no new symptoms. He states he feels flush if his bladder becomes full. He has not had fever or chills, shortness of breath, or pain. He notes he has chronic ulcers with home wound care visiting daily. He states that he recently got a new [facility] bed this past week to help offset load on pressure ulcers. Pressure ulcers are located to Left shoulder, sacrum, left elbow, left heel. He notes he has been having issues with saenz starting last night as didn't appear to be draining properly and was kinked. Mr. Sanchez states his father was able to "untwist" saenz tubing. He states he takes Oxybutinin for overflow incontinence as he doesn't feel urge until his bladder is 1500cc distended sometimes and medication is used to treat that. He notes he follows with Urologist and has been having some problems with saenz draining properly, but was limited to seek evaluation because of COVID causing limited ability to be seen in person. At outside facility, he had a BP of 81/57, HR 90. Hisb labs were notable for WBC 19.6, iron deficiency anemia with a Hgb of 11.5, Na 134, Albumin 2.3, UA with 2+ blood, protein 2+, Leukocyte esterase 2+, Nitrites negative, bacteria many, mucus few. Blood and urine cultures appear to have been taken. He received Rocephin 1gm IV at 2pm on 12/01 and also Vancomycin 1gm at same time. In addition, he received NSS 1L Bolus. He had a CT Abd/pelvis w/IV contrast - which showed. - very full bladder with right hydroureteronephrosis which may be a reflection of the full bladder as this was not present on the previous exam and there is no obivious etiology in the right ureter. - variable appearance of bowel loops throughout the abdomen with dilated air- filled transverse colon. Fluid filled and decompressed small bowel loops. None of these appear to communicate with the bladder. The ostomy has been moved from the left mid abdomen to the right lower abdomen when compared to the previous exam. There does not appear to be any obstruction related to the ostomy, however, all of the oral contrast remains in the proximal small bowel. - desiccated appearing stool in the rectosigmoid stump, not significantly changed with compared to the previous exam. - There is air in the bladder, this may be iatrogenic as a result of the saenz cath, fistulous communication with the bowel is not excluded, however, not confirmed at this exam. - Gallstones without cholecystitis. He here notes no acute complaints, he is requesting food as he hasn't eaten all day. Medications were reviewed. He notes only taking Midodrine once, qAM, but report from outside hospital shows this is BID. He denies any blood from ostomy but notes that stools have been more liquid consistency. He notes he has been drinking plenty of clear fluids. No known drug allergies. He sustained injury from fall from [employer] while in [facility], day prior before getting out on parole about 7 years ago. His dad takes care of him at home and he has home health nurses as well. He was transferred here for sepsis requiring additional workup with need for possible specialist evaluation/intervention. Admission Exam Per Admitting Provider Constitutional: cooperative and comfortable; no acute distress Eyes: PERRL, conjunctivae normal, anicteric sclerae ENMT: significantly dry mucous membranes Neck: normal visual inspection and trachea midline Respiratory: normal respiratory effort, lungs clear to auscultation Cardiovascular: Rate/Rhythm: regular rate and + tachycardic Gastrointestinal (Abdomen): ostomy to right abdomen with brown output; old surgical scars on abdomen; diminished bowel souds, non-tender, soft Musculoskeletal: Head/Neck/Chest: normocephalic and head atraumatic limited range of motion to upper extremities with majority of movement at shoulders, able to move arms, paraplegic from waist down. Skin: multiple pressure ulcers that are chronic; able to view very very significantly large sacral pressure ulcer stage 4 appearance that makes up the majority of the left gluteus. Output of small light brown stool from rectum while being rolled to look at ulcer. Neurologic: awake at neuro baseline per patient Psychiatric: A+Ox3, euthymic affect Genitourinary: Has an infra penile saenz cath placed Principal Diagnosis Urosepsis, osteomyelitis 2/2 pressure ulcer Discharge Exam Constitutional no acute distress and not ill appearing Respiratory normal respiratory effort; no respiratory distress and no cough Auscultation: lungs clear to auscultation bilaterally Cardiovascular Rate/Rhythm: regular rate and regular rhythm Heart Sounds: no murmur Gastrointestinal (Abdomen) Inspection/Auscultation: abdomen normal to inspection; abdomen not distended Percussion/Palpation: abdomen soft; abdomen nontender, no guarding and abdomen not rigid Musculoskeletal extensive deep pressure ulcers over the scapula and sacrum, detailed PE noted in wound care consult Discharge Data Allergies Allergy/AdvReac Type Severity Reaction Status Date / Time No Known Allergies Allergy Unverified 12/03/19 01:20 Consultations 12/02/19 23:41 Consult Urology Routine 12/02/19 23:46 Consult Case Management - Discharge Planning Routine 12/03/19 17:15 Consult Wound Care Provider Routine 12/03/19 19:22 Consult General Surgery Routine Ordered Studies 12/04/19 15:45 CT pelvis wo con Routine Hospital Course (1) Sepsis: Urosepsis Patient presented to the hospital via transfer from [facility] for sepsis. On CT, he was found to have right hydroureteronephrosis secondary to obstruction of his nephrostomy tube. He was given light hydration and IV rocephin and vancomycin. Changing the saenz tube relieved the obstruction, and the patient dramatically improved both in terms of his clinical presentation and his vitals. Urology was consulted and felt the problem had resolved. The patient's urine culture grew Gram-negative bacilli, so vancomycin was discontinued while ceftriaxone was continued. Patient's clinical picture continued to improve, and he was discharged home with cefdinir and doxycycline to cover his UTI in addition to osteomyelitis coverage (described below). Osteomyelitis 2/2 pressure ulcers Patient was noted to have extensive sacral and scapular pressure ulcers on admission. Wound care was consulted and found the ulcers to be deep with exposed bone. CT showed evidence of osteomyelitis of the left femur, sacrum, and proximal coccyx. Surgery was consulted and felt he did not require surgery. Because the patient has support at home including home health aides, had just received a new mechanical pressure-offloading bed, and has an upcoming appointment with his wound care specialists in [place] next week, the decision was made to discharge patient home on cefdinir and doxycycline. (2) Pressure ulcer: (3) Hypotension: (4) Autonomic disorder: (5) Depression: (6) Leukocytosis: (7) Saenz catheter problem: (8) Hydronephrosis: (9) Paraplegia: Total Time Total Time Spent Total Time Spent (In Minutes): See attending documentation Discharge Plan Discharge Items Patient Disposition: Home - Home Health Services Reason For Visit: PYELONEPHRITIS Discharge Diagnosis: Pyelonephritis, osteomylitis 2/2 pressure uclers Activity: Resume your previous activity Non-emergency contact: Primary Care Provider Call non-emergency contact if: you have any medication questions, your symptoms worsen, you have a fever and your wound has increased drainage Follow-up/Referrals: Ariel Braga DO [Primary Care Provider] - Diet: Regular Addtl Attending Provider Instructions: urinary tract infection -your urine culture grew bacteria called klebsiella - a very common cause of urinary tract infection - fortunately you got better on the antibiotics here (ceftriaxone) and those translate really well to an oral antibiotic (cefdinir) - so we'll finish out a course of treatment with the cefdinir -when someone has a chronic catheter, sometimes infections can happen, unfortunately. it doesn't appear that there's anything you did to bring on the infection. we'll want you to finish out this course of antibiotics, and have the catheter changed regularly pressure ulcers and bone infection -unfortunately you have fairly numerous and fairly deep pressure ulcers on your back - and the CT does suggest that these go deep enough that a lot of the bone is infected from them -as we discussed, there is nothing urgently surgical that needs to be done (there is one area that looks like a tunneling from one ulcer to another that might eventually need a surgery to open up - but that is something that would best be done with your regular team so they can also follow through with the healing) -for the most part, treatment for this kind of ulcer and infection will be offloading, wound care, and antibiotics -offloading - it's definitely a great thing that you got a new bed that is working, as it is critical to try to keep pressure off the areas affected. definitely have family and your home nurses help with repositioning you frequently as well -wound care - while there might at times need to be surgery to remove tissue, right now the surgeon did not see anything that would need to be removed, and like above noted - there is a tunneling under the skin from an ulcer that might need to be opened up, but certainly not in an urgent/emergent fashion - so it is safe to get you home and have you followed with your regular wound care team for all of this. otherwise the wound care will involve keeping the areas clean dressings, creams, etc, and possibly something like a wound vac in the future depending on what the wound team is seeing as far as progress. this is a huge part of trying to heal these ulcers and to keep them from getting worse -antibiotics - bone infections are certainly worrisome - and often are something that take a long time of treatment to get ahead of. for now, we'll start with doxycycline (in addition to the cefdinir - which, while primarily for the urine infection, will help kill bacteria growing in the ulcers as well). the doxycycline will be effective against skin bacteria even if something like MRSA were to be involved - so that plus the cefdinir is a good starting point. as you're following with the wound clinic, they may see a need to change booth attendant to half-way IV antibiotics, but since the doxycycline and cefdinir get overall good blood levels and tissue penetration, they are a good starting point. the duration of the antibiotics will really be "up in the air" - for now we'll treat for a presumed 2 weeks with the cefdinir and 4 weeks with the doxycycline, but i fully expect that to need to be changed/extended/etc as the course of care for these ulcers and bone infection continue. *of note, while your blood cultures from [place] haven't shown any bacteria, one of your cultures after you got here does show bacteria - but the other one does not. this makes it highly likely to just be that some skin bacteria found its way into the tube they sent to the lab - a common finding. that said, if somehow both bottles started growing bacteria, then we would need to escalate to IV antibiotics -- this is really unlikely to be the case, but i never like people to be caught off guard if we end up calling that we need to change treatment* your labwork shows low protein levels - particularly a marker for nutrition called albumin. another piece of healing that will be really important is making sure you're getting enough to eat and especially enough protein --> to that end, it's a pretty helpful thing to have something like a boost or ensure protein shake 2-3 times a day in addition to your regular meals we'll make sure all the information goes to Dr Braga. Also if you get on the [facility] patient portal, all your labs and imaging results should be available for you to pull up as well. Pending Studies at Discharge: No Stand-Alone Forms: My [facility], Smoking Cessation Medications and DC Order Prescriptions: New cefdinir 300 mg capsule 300 mg PO BID 14 Days Qty: 28 RF: 0 doxycycline hyclate 100 mg capsule 100 mg PO BID 28 Days Qty: 56 RF: 0 Discharge Orders: Discharge Order (Routine); Ordered 12/04/19 Ordered By: Piter Wilson Admission Data Admit Date/Time: 12/02/19 22:56 Attending Provider: Piter Wilson Admit Provider: Roland Morales Primary Care Provider: Ariel Braga Other Providers: Nick Lou ; Andrew Dexter ; Reno Parkinson ; [facility] ; Conor Archuleta ; William Barfield Resident Activity Tracking Resident Involvement: Resident Care Provided Care Provided: Adult Hospital Medicine
--- NOTE | 2019-12-04 18:31 | Communication Note ---
Date of Service: December 04, [address] Braga to update on situation - he is abreast of pt's wound situation and will continue to coordinate care // pt has ongoing wound follow up as well
[2019-12-04 19:46] VITALS: TEMP 98.2
[2019-12-04 23:52] VITALS: BP 107/72; PULSE 71
--- NOTE | 2019-12-05 19:19 | Billing Data ---
Date of Service December 04, 2019 Coding Level of Care Code D/C Day Management >30 mins
[2019-12-06] MEDS ORDERED: VANCOMYCIN TROUGH ONE (05:30)
== END 2019-12-05 00:30 | disposition home health service (06) | DRG 698 ==
LOC: SUATTDRO 22:56 → 2S 22:56